=== PATIENT | male | born 1930 | race Caucasian/White ===

== ENCOUNTER 2016-05-25 04:53 | Emergency (ER) | payer MEDICARE ==
[~2016-05-25] VITALS: Ht 182.9 cm; Wt 111.4 kg
[~2016-05-25 04:53] MED LIST: ENAL20TA PO; HYDR25TA4 PO; METF500T PO; METO-274 PO; MULT1CAP33 PO; ONDA-53 PO; PROM12.510 PO
[2016-05-25 04:56] VITALS: BP 116/77; PULSE 118; RESP 28; O2SAT 94
[2016-05-25 05:27] LABS: BASOPHILS % (AUTO) 0.6 % (0-3); EOSINOPHILS % (AUTO) 0.9 % (0-5); MONOCYTES % (AUTO) 11.3 % (4-12); Mean Corpuscular Hemoglobin 29.8 pg (27.0-35.0); Mean Corpuscular Volume 95.3 fL (81-100); NEUTROPHILS % (AUTO) 70.1 % (40-74); Platelet Count 121 bil/L (150-400)
[2016-05-25 06:00] LABS: Magnesium 1.9 mg/dL (1.6-2.6)
[2016-05-25 06:02] LABS: TROPONIN T 0.268 ug/L (0.0-0.011)
--- NOTE | 2016-05-25 06:12 | ED.REPORT ---
HPI-Dyspnea / Wheezing Date of Service May 25, 2016 ED Provider: Dann Sigala DO A pleasant 86 year old diabetic male with a history of follicular lymphoma, HTN , and chronic kidney disease presents to the ER due to three weeks of shortness of breath, worsening markedly today. He states that his last chemotherapy treatment was 3 weeks ago, and reports SOB since, worsening today with dyspnea with minimal exertion. Associated symptom of intermittent chills. Patient denies fever, chest pain, chest pressure, cough, and urinary symptoms. No history of PE, DVT, and atrial fibrillation. Nursing Notes Stated Complaint: SHORT OF BREATH Chief Complaint: Respiratory Distress Nursing Notes Reviewed: Yes Allergies: Coded Allergies: No Known Allergies (Unverified , 05/25/16) Scheduled Enalapril Maleate (Enalapril Maleate) 20 Mg Tablet 20 MG PO BID Hydrochlorothiazide (Hydrochlorothiazide) 25 Mg Tablet 25 MG PO DAILY Metformin (Glucophage) 500 Mg Tablet 500 MG PO DAILY Metoprolol Succinate ER (Metoprolol Succinate ER) 100 Mg Tab.er.24h 100 MG PO BID Multivitamin (Multivitamins) 1 Each Capsule 1 EACH PO DAILY Scheduled PRN Ondansetron (Ondansetron) 4 Mg Tablet 4 MG PO Q6H PRN PRN For Nausea/Vomiting Promethazine (Promethazine) 12.5 Mg Tablet 12.5 MG PO Q4H PRN PRN For Nausea/ Vomiting General Time Seen by MD: 06:04 Chief Complaint Shortness of breath Hx Obtained From: Patient Arrived By: Walk-in Sudden in Onset?: No Onset Occurred: More than a week ago... (3 weeks) Symptom Duration: Since onset Location: : None Associated with: Denies: Chest pain, Cough, Fever, Nausea Exacerbated by: Activity Pertinent Negative: Relieved by nothing Context Related History: Denies: Pulmonary embolism Past Medical History Past Medical History Kidney stones Denies history of PE, DVT, and atrial fibrillation Reports: Cancer (Follicular lymphoma), Diabetes mellitus, GERD, Hypertension Reports: Kidney disease, Urinary tract infection Past Surgical History Reports: Prostatectomy Smoking History Former Smoker Ambulatory Status Independent Review of Systems Constitutional: Reports: Chills, Denies: Fever Respiratory: Reports: Dyspnea on exertion, Shortness of breath, Denies: Non-productive cough Cardiovascular: Denies: Chest pain Musculoskeletal: Denies: Back pain, Extremity pain, Neck pain Complete sys rev & neg: except as marked. Male: Denies Dysuria, Denies Flank pain, Denies Hematuria, Denies Urinary frequency, Denies Urinary urgency Physical Exam Initial Vital Signs Vital Signs (First) Date Time Temp Pulse Resp B/P Pulse Ox O2 Delivery O2 Flow Rate FiO2 05/25/16 04:56 36.2 118 28 116/77 94 Room Air 05/25/16 06:17 2 Initial VS: Reviewed Head / Eyes: Atraumatic, Normocephalic Abdomen / GI: Soft, Non-tender, No guarding, No rebound, No distention Extremities: Vascular intact, Neuro intact, No swelling, No tenderness Neurologic: Alert, Oriented, Nonfocal Psychiatric: Mood/affect normal, Behavior normal, Normal thought content General/Constitutional: Awake, Alert, Well developed, Well nourished Neck: Full range of motion, No midline vertebral tend Soft Tissue Neck: Positive: Cervical adenopathy L... (Anterior), Cervical adenopathy R... (Anterior) Respiratory / Chest: No rales, No rhonchi, No wheezing Diminished Breath Sounds: Positive: Decreased bilateral (mild) Cardiovascular: No gallop, No murmurs, No rubs Heart Rate / Rhythm: Positive: Irreg irregular rhythm Trace edema of the lower extremities, bilaterally. Skin: Warm, Dry Rash / Lesion Notes: Linear patchy rash along left chest wall consistent with shingles Rash / Lesion Location: Positive: Chest Interpretation & Diagnostics Lab Results Interpretation Result Diagram: 05/25/16 0512 05/25/16 0512 Test 05/25/16 05:12 White Blood Count 8.6th/mm3 (3.8-10.1) Red Blood Count 3.86mil/mm3 (4.40-5.80) Hemoglobin 11.5g/dL (13.8-17.2) Hematocrit 36.8% (41.0-50.0) Mean Corpuscular Volume 95.3fL (81-100) Mean Corpuscular Hemoglobin 29.8pg (27.0-35.0) Mean Corpuscular Hemoglobin Concent 31.3% (32.0-37.0) Red Cell Distribution Width 15.8% (12.3-15.4) Platelet Count 121bil/L (150-400) Neutrophils (%) (Auto) 70.1% (40-74) Lymphocytes (%) (Auto) 15.8% (14-46) Monocytes (%) (Auto) 11.3% (4-12) Eosinophils (%) (Auto) 0.9% (0-5) Basophils (%) (Auto) 0.6% (0-3) Activated Partial Thromboplast Time 25.2sec (22.8-33.0) Sodium Level 145mEq/L (134-144) Potassium Level 4.8mEq/L (3.5-5.2) Chloride Level 107mEq/L (97-108) Carbon Dioxide Level 19mmol/L (18-29) Blood Urea Nitrogen 47mg/dL (8-27) Creatinine 2.52mg/dL (0.76-1.27) Estimat Glomerular Filtration Rate 26mL/min (>59) Glucose Level 174mg/dL (60-99) Calcium Level 8.6mg/dL (8.5-10.1) Magnesium Level 1.9mg/dL (1.6-2.6) Total Bilirubin 0.5mg/dL (0.0-1.2) Aspartate Amino Transf (AST/SGOT) 18U/L (0-50) Alanine Aminotransferase (ALT/SGPT) 14U/L (0-44) Alkaline Phosphatase 72U/L (25-160) Troponin T 0.268ug/L (0.0-0.011) Pro-B-Type Natriuretic Peptide 7534pg/mL (0-486) Total Protein 6.1g/dL (6.4-8.4) Albumin 3.4g/dL (3.4-5.0) Hold Guzmán Top Tube Received (Received) ECG Interpretation ECG Interpretation: Atrial fibrillation, rate 90 ST depression and lateral T wave inversion v3-v6 Time: 06:33 Interpreted by: ED physician ECG Interpretation: Afib ST depression and T wave inversion in v3-v6, avL, and lead 2 Time: 07:26 Interpreted by: ED physician X-Ray Chest Interpretation Chest Xray Interpretation: Mild cephalization View: Portable, 1 view Interpretation / Wet Read by: Wet read ED physician Re-Eval/Medical Decision Med Decision/Clinical Course Shortness of breath with any exertion associated with active cancer, differential diagnosis at this juncture is non-ST elevation [place], demand ischemia from new onset A. fib, congestive heart failure, or pulmonary embolism. Unfortunately at this point he is not a candidate for CT angiogram of the chest due to renal function. He is placed on heparin. He was given aspirin. In terms of his atrial fibrillation, he is rate controlled without intervention. He is satting well on room air. He has no chest discomfort. He does not feel short of breath at rest. A ventilation/perfusion scan was ordered however was not done. He unfortunately will be transferred due to bed capacity. The hospitalist at [facility] has very graciously accepted this patient. Source of Hx: Old records Re-Evaluation/Progress #1: Time of Eval: 06:20 Re-Evaluation/Progress Note: Discussed lab and radiology results and need to admit. Patient is amenable to the plan. Updated him on the plan of care. All other questions addressed. Re-Evaluation/Progress #2: Time of Eval: 07:21 Re-Evaluation/Progress Note: Discussed plan to transfer to [facility]. Patient is amenable to the plan. All other questions addressed. Consultation : Referral / Consult Name: Edwin Harper MD Consulted With: Hospitalist Call Returned at: 07:01 Full Stack Software Engineer: Agrees with eval, Agrees with plan, Accepts admit Counseled Regarding: Diagnosis, Lab results, Need for transfer Discharge & Departure Impression: Primary Impression: NSTEMI (non-ST elevated myocardial infarction) Additional Impression: Chronic kidney disease Disposition: Transfer, Acute Care Facility Receiving Hospital: [facility] Transfer Accepted at: 07:07 Spoke with: Hospitalist (Dr. Harper) Patient Status: Stable Patient Informed: Yes Discharge Condition All VS Reviewed: Yes Condition: Stable Referrals: Edwin Allen MD (PCP) Crit Care Except Billable Proc Time Spent: 30-74 minutes Services Performed: Patient management by me, Time spent at bedside, Reviewing test results Critical Care Notes: See JH Hidalgo Attestation Portions of this note were transcribed by Umang Harding. I, Dr. Sigala, personally performed the history, physical exam and medical decision-making; I reviewed and confirmed the accuracy of the information in the transcribed note. Signed by: Gwen Sharma, 05/25/2016 and 07:24. copies to: Edwin Allen MD, Timothy S DO May 25, 2016 06:12 UMANG HARDING May 25, 2016 06:27
[2016-05-25 06:17] VITALS: BP 99/53; PULSE 76; RESP 18; O2SAT 94
[2016-05-25] MEDS ORDERED: Heparin 25K Unit/500mL 0.45 NS 25,000 UNIT in IV Premix 1 EACH IV ONE (06:30)
[2016-05-25] MEDS ORDERED: Heparin 5,000 Unit/mL Inj IVPUSH ONE (06:30)
[2016-05-25 06:51] VITALS: BP 112/76; PULSE 75; RESP 16; O2SAT 100
[2016-05-25 07:27] VITALS: BP 132/72; PULSE 86; RESP 24; O2SAT 99
--- NOTE | 2016-05-25 08:36 | DRSVH ---
PROCEDURE: X-RAY CHEST, TWO VIEWS ([id number]) INDICATIONS: SHORT OF BREATH UPON EXCERTION TECHNIQUE: 2 views of the chest were acquired. COMPARISON: [facility], , CHEST 2VW, 07/23/2011, 14:07. FINDINGS: Surgical changes and devices: None. Lungs and pleura: There is interstitial prominence most confluent in the lung bases bilaterally. No f ocal airspace opacities. No pleural effusion or pneumothorax. The lung volumes are large and the diap hragms are flattened suggesting emphysema. Mediastinum: Mediastinal contours are normal. Heart size is mildly enlarged. Bones and chest wall: No suspicious bony abnormalities. Degenerative changes are present throughout the thoracic spine which is osteopenic and kyphotic. Soft tissues appear unremarkable. IMPRESSION: 1. Interstitial prominence and mild cardiomegaly suggesting fluid overload. Dictated by: Brittanie Valdez M.D. on 05/25/2016 at 8:35 Approved by: Brittanie Valdez M.D. on 05/25/2016 at 8:35
== END 2016-05-25 07:42 | disposition short-term general hospital (02) ==
LOC: SED 04:53
DX: I21.4 Non-ST elevation (NSTEMI) myocardial infarction (principal); N18.9 Chronic kidney disease, unspecified; I48.91 Unspecified atrial fibrillation; E11.22 Type 2 diabetes mellitus with diabetic chronic kidney disease; I12.9 Hypertensive chronic kidney disease with stage 1 through stage 4 chronic kidney disease, or unspecified chronic kidney disease; K21.9 Gastro-esophageal reflux disease without esophagitis; Z85.72 Personal history of non-Hodgkin lymphomas; Z87.440 Personal history of urinary (tract) infections; Z87.442 Personal history of urinary calculi; Z87.891 Personal history of nicotine dependence; Z79.84 Long term (current) use of oral hypoglycemic drugs
CPT/HCPCS: 36415; 71020; 80053; 83735; 83880; 84484; 85025; 85730; 93005; 96374; 99291; J1644

== ENCOUNTER 2016-06-29 07:18 | Inpatient (IN) | payer MEDICARE ==
[2016-06-29] VITALS (11 sets, daily range): BP systolic 79–134; BP diastolic 43–68; PULSE 68–132; RESP 15–24; O2SAT 92–100
[~2016-06-29] VITALS: Ht 182.9 cm; Wt 106.3 kg
--- NOTE | 2016-06-29 07:24 | ED.REPORT ---
HPI-Stroke / CVA Jun 29, 2016 ED Provider: Gracia Mathis MD Patient is a 86 year old male with a hx of lymphoma, [place], HTN, and stroke who presents to the ED via EMS due to chest pain onset this 3 hours ago. He was woken up by chest pain this morning and experienced SOB just when putting his socks on. He was unable to put his clothes on or even get up due to weakness.. 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 He currently feels "much better then when the medics arrived" but still feels like he's fighting for breath. He has a hx of one medically managed heart attack and a few mini strokes and severe, daily SOB. Stent on right corroded artery. Healing shingles on abdomen since [place]. His oncologist is Dr. Ernandez. Currently lives by himself in a house. He denies previous issues with heart failure and is currently on Coumadin and warfarin. Nursing Notes Stated Complaint: CHEST PAIN Nursing Notes Reviewed: Yes Allergies: Coded Allergies: No Known Allergies (Unverified , 05/25/16) Scheduled Atorvastatin (Lipitor) 40 Mg Tablet 40 MG PO DAILY (Reported) Clopidogrel (Clopidogrel) 75 Mg Tablet 75 MG PO DAILY (Reported) Enalapril Maleate (Enalapril Maleate) 20 Mg Tablet 20 MG PO BID (Reported) Furosemide (Furosemide) 40 Mg Tablet 40 MG PO DAILY (Reported) Glimepiride (Glimepiride) 2 Mg Tablet 2 MG PO DAILYWM (Reported) Lisinopril (Lisinopril) 20 Mg Tablet 20 MG PO DAILY (Reported) Metformin (Metformin) 500 Mg Tablet 500 MG PO BIDAC (Reported) Metoprolol Tartrate (Metoprolol Tartrate) 100 Mg Tablet 125 MG PO DAILY ( Reported) Multivitamin (Multivitamins) 1 Each Capsule 1 EACH PO DAILY (Reported) Potassium Chloride ER (Klor-Con M20) 20 Meq Tablet 20 MEQ PO DAILY (Reported) Warfarin Sodium (Warfarin Sodium) 2.5 Mg Tablet 2.5 MG PO DAILY (Reported) Scheduled PRN Docusate Sodium (Colace) 100 Mg Capsule 100 MG PO BID PRN PRN For Constipation ( Reported) Ondansetron (Ondansetron) 4 Mg Tablet 4 MG PO Q6H PRN PRN For Nausea/Vomiting ( Reported) Promethazine (Promethazine) 12.5 Mg Tablet 12.5 MG PO Q4H PRN PRN For Nausea/ Vomiting (Reported) General Time Seen by Provider: 07:58 Chief Complaint Other (chest pain) Left-sided Hx Obtained From: Patient, Son Arrived By: Ambulance Time last known well yesterday evening Sudden in Onset?: Yes Context of Onset: During sleep Symptom Duration: Since onset Progression Since Onset: Unchanged Location: : Chest Radiation: Does not radiate Severity: Current: Mild Recent Healthcare: Recent doctor visit Similar Sx Previous: No Risk Factors NIH Stroke Scale Level of Consciousness: Alert and responsive (0) Ask Month & Age: Both questions right (0) Open/Close Eyes/Hand Water Plant Operator: Performs both tasks (0) Horizontal EO Movements: Partial gaze palsy (1) Facial Palsy: Partial paral, lower (2) Right Arm Motor Drift (10s): No drift 10 sec (0) Left Arm Motor Drift (10s): Drift, not touch bed (1) Right Leg Motor Drift (5s): No drift 5 sec (0) Left Leg Motor Drift (5s): No drift 5 sec (0) Limb Ataxia FNF/Heel-Morales: Ataxia in 1 limb (1) Language Aphasia: No aphasia, normal (0) Dysarthria: Slurring intelligible (1) Extinction/Inattention: Inatt visual/tactile (1) Time NIHSS Performed: 07:20 Date NIHSS Performed: Jun 29, 2016 Past Medical History Past Medical History Kidney stones Denies history of PE, DVT, and atrial fibrillation Ischemic cardiomyopathy Ejection fraction in the 20-25% range Reports: Cancer, Diabetes mellitus, GERD, Hypertension, Stroke Reports: Kidney disease, Urinary tract infection Past Surgical History Reports: Prostatectomy Smoking History Former Smoker Ambulatory Status Independent Review of Systems Constitutional: Reports: Weakness - generalized Respiratory: Reports: Shortness of breath Cardiovascular: Reports: Chest pain Complete sys rev & neg: except as marked. Physical Exam Initial Vital Signs Vital Signs (First) Date Time Temp Pulse Resp B/P Pulse Ox O2 Delivery O2 Flow Rate FiO2 06/29/16 07:36 36.7 122 24 104/51 94 Room Air 06/29/16 08:25 2 Initial VS: Reviewed ENT: Mucous membranes moist, Conjunctiva normal, No scleral icterus Back: No CVA tenderness General/Constitutional: Awake, Cooperative bruises all over in various stages of healing Head / Eyes: Atraumatic, Normocephalic, PERRL, EOMI Neck: Atraumatic, Supple, No meningismus, Full range of motion Respiratory / Chest: Atraumatic, Breath sounds NL, Breath sounds = bilat, No respiratory distress, No rales, No rhonchi, No wheezing, No retractions Heart Rate / Rhythm: Positive: Tachycardia Neurologic: Oriented X3, Speech NL, No motor deficits Abdomen: Atraumatic left sided shingles T5 Lower Extremity / Pelvis / MS: No edema no swelling in calves or tenderness Interpretation & Diagnostics Lab Results Interpretation Result Diagram: 06/29/16 0748 06/29/16 0748 Test 06/29/16 07:48 White Blood Count 10.5th/mm3 (3.8-10.1) Red Blood Count 3.06mil/mm3 (4.40-5.80) Hemoglobin 9.3g/dL (13.8-17.2) Hematocrit 28.7% (41.0-50.0) Mean Corpuscular Volume 93.8fL (81-100) Mean Corpuscular Hemoglobin 30.4pg (27.0-35.0) Mean Corpuscular Hemoglobin Concent 32.4% (32.0-37.0) Red Cell Distribution Width 15.1% (12.3-15.4) Platelet Count 208bil/L (150-400) Neutrophils (%) (Auto) 68.4% (40-74) Lymphocytes (%) (Auto) 17.5% (14-46) Monocytes (%) (Auto) 10.9% (4-12) Eosinophils (%) (Auto) 0.6% (0-5) Basophils (%) (Auto) 0.4% (0-3) Prothrombin Time 14.2sec (8.1-12.5) Prothromb Time International Ratio 1.32ratio Sodium Level 144mEq/L (134-144) Potassium Level 4.4mEq/L (3.5-5.2) Chloride Level 105mEq/L (97-108) Carbon Dioxide Level 19mmol/L (18-29) Blood Urea Nitrogen 47mg/dL (8-27) Creatinine 2.28mg/dL (0.76-1.27) Estimat Glomerular Filtration Rate 29mL/min (>59) Glucose Level 144mg/dL (60-99) Calcium Level 8.9mg/dL (8.5-10.1) Magnesium Level 2.2mg/dL (1.6-2.6) Total Bilirubin 1.1mg/dL (0.0-1.2) Aspartate Amino Transf (AST/SGOT) 16U/L (0-50) Alanine Aminotransferase (ALT/SGPT) 9U/L (0-44) Alkaline Phosphatase 86U/L (25-160) Troponin T 0.028ug/L (0.0-0.011) Total Protein 6.0g/dL (6.4-8.4) Albumin 3.7g/dL (3.4-5.0) ECG Interpretation ECG Interpretation: different ischemic A-fib w/ RVR Time: 08:06 Interpreted by: ED physician Rhythm / Conduction: Atrial fib with RVR (128) X-Ray Chest Interpretation Chest Xray Interpretation: IMPRESSION: Mild cardiomegaly redemonstrated. Dictated by: Renny Clement RRA Interpreted: Juan Mae MD on 06/29/2016 at 10:11 Transcribed by: MITCHELL on 06/29/2016 at 10:11 View: Portable Interpretation / Wet Read by: Interpret - Radiologist Re-Eval/Medical Decision Med Decision/Clinical Course 6-year-old gentleman presents with atrial fibrillation with rapid ventricular response, significant hypotension, chest pain and hypoxia. Initial treatment in the emergency department; 2 peripheral IVs. EKG does not suggest an acute STEMI, 2 L of fluid are given for hypotension, he responds nicely to oxygen and [id number]. Dopamine is started for hypotension and assistance with cardiac contractility. Prior to records being available, patient very clearly stated he wanted to be DO NOT RESUSCITATE would not be interested in cardiac catheterization or any heroic measures. Possibility of pulmonary embolism was considered as he did not recall atrial fibrillation previously. Because of poor renal function IV contrast is not an option so urgent echo was obtained in the emergency department. At this point records became available and it became much more clear that his issues are chronic progressive and indicate a very similar presentation and admission recently.. At this point continued with pressure support blood pressures in the 90-100 systolic range. He remains alert and appropriate. Discussed goals of care and appropriateness of a palliative care consult with this admission. Admitted to PCU Re-Evaluation/Progress : Time of Eval: 10:00 Patient Status: Condition unchanged Re-Evaluation/Progress Note: Pt rechecked. Plan for urgent echocardiogram. Consultation : Referral / Consult Name: Michael Queen MD Consulted With: Hospitalist Call Returned at: 10:30 Client Reporting Associate: Agrees with eval, Agrees with plan Note: Case discussed. Counseled Regarding: Diagnosis, Lab results, Need for admission Patient Discharge & Departure Impression: Primary Impression: NSTEMI (non-ST elevated myocardial infarction) Additional Impressions: Ischemic cardiomyopathy Weakness Renal failure Acute congestive heart failure Disposition: ADMITTED TO HOSPITAL Discharge Condition All VS Reviewed: Yes Condition: Stable Referrals: Edwin Allen MD (PCP) Crit Care Except Billable Proc Time Spent: 30-74 minutes Services Performed: Patient management by me, Time spent at bedside, Reviewing test results, Reviewing imaging, Discussing patient care, Documentation in record, Time with fam/surrogate Scribe Attestation Portion of this note were transcribed by Elisabeth Thibodeaux. I, Dr. Mathis, personally performed the history, physical exam, and medical decision-making: I reviewed and confirmed the accuracy for the information in the transcribed note. Signed by: johana Atwood, 06/29/16 1200 copies to: Edwin Allen MD, Shawna L MD Jun 29, 2016 07:24 ELISABETH THIBODEAUX Jun 29, 2016 07:36
[2016-06-29 08:01] LABS: BASOPHILS % (AUTO) 0.4 % (0-3); EOSINOPHILS % (AUTO) 0.6 % (0-5); MONOCYTES % (AUTO) 10.9 % (4-12); Mean Corpuscular Hemoglobin 30.4 pg (27.0-35.0); Mean Corpuscular Volume 93.8 fL (81-100); NEUTROPHILS % (AUTO) 68.4 % (40-74); Platelet Count 208 bil/L (150-400)
[2016-06-29] MEDS ORDERED: 0.9% Sodium Chloride 1,000 ML IV ONE (08:05)
[2016-06-29 08:21] LABS: INR 1.32 ratio
[2016-06-29] MEDS: DOPamine 800 mg/250 mL D5W 800,000 MCG in IV Premix 1 EACH IV SCH (08:23)
[2016-06-29 08:26] LABS: TROPONIN T 0.028 ug/L (0.0-0.011)
[2016-06-29 08:37] LABS: Magnesium 2.2 mg/dL (1.6-2.6)
--- NOTE | 2016-06-29 10:12 | DRSVH ---
PROCEDURE: X-RAY CHEST ONE VIEW, PORTABLE ([id number]) INDICATIONS: CP TECHNIQUE: One view of the chest was acquired. COMPARISON: [facility], CR, XR CHEST 2VW, 05/25/2016, 5:20. FINDINGS: Surgical changes and devices: None. Lungs and pleura: No pleural effusions or pneumothorax. Lungs are clear. Mediastinum: Mediastinal contours appear normal. Heart size is enlarged. Bones and chest wall: No suspicious bony lesions. Overlying soft tissues appear unremarkable. IMPRESSION: Mild cardiomegaly redemonstrated. Dictated by: Renny Clement [facility] Interpreted: Juan Mae MD on 06/29/2016 at 10:11 Transcribed by: MITCHELL on 06/29/2016 at 10:11 Approved by: Juan Mae M.D. on 06/29/2016 at 16:21
--- NOTE | 2016-06-29 11:21 | DRSVH ---
[facility] [address] [place] [address] Echocardiogram Report Name: NNEKA MENDOSA LStudy Thomas e: 06/29/2016 Height: 72 in Hospital Exam Location: [facility] Weight: 225 lb Gender: Male BSA: 2.2 m2 : 1930 Age: 86 yrs BP: 136/47 mmHg Reason For Study: NSTEMI Ordering Physician: Performed By: Geeta WALDENIST [facility] Interpretation Summary The left ventricle is normal in size. The ejection fraction is estimated to be 30-35%. Compared to the prior exam, left ventricular function is slightly improved. Basal LV segments contractility have improved in this study from the previous one. The right ventricle is normal in size and function. There is mild mitral regurgitation. Compared to the prior echo study, there has been no change in the severity of mitral regurgitation. There is mild tricuspid regurgitation. Compared to the prior echo exam, there has been no change in TR severity. Right ventricular systolic pressure is estimated to be 40 mmHg plus the clinically estimated CVP which cannot be estimated on this exam. Procedure: A two-dimensional transthoracic echocardiogram with color flow and Doppler was performed. The study quality was technically adequate. A contrast injection of Definity was performed to improve assessment of LV function. Comparison is made with the echocardiogram of 05/25/2016. The patient was in atrial fibrillation with heart rates between 104-146 bpm during the exam. Left Ventricle: The left ventricle is normal in size. Proximal septal thickening is noted. There is no thrombus. The ejection fraction is estimated to be 30-35%. Compared to the prior exam, left ventricular function is slightly improved. There is moderate to severe global hypokinesis of the left ventricle. Basal LV segments contractility have improved in this study from the previous one. Diastolic function could not be accurately assessed due to atrial fibrillation. Right Ventricle: The right ventricle is normal in size and function. Atria: The left atrium is moderately dilated. The left atrium has mildly decreased in size since the prior echo exam. The right atrium is mildly dilated. The interatrial septum is not well visualize; however, the prior echo demonstrated a small PFO. Mitral Valve: The mitral valve leaflets appear mildly thickened, but open well. The mitral valve leaflets are slightly calcified. There is mild mitral regurgitation. Compared to the prior echo study, there has been no change in the severity of mitral regurgitation. Aortic Valve: The aortic valve is trileaflet. The aortic valve opens well. There is moderate aortic valve sclerosis. There is no aortic valve stenosis. No aortic regurgitation is present. Tricuspid Valve: The tricuspid valve is not well visualized, but is grossly normal. There is mild tricuspid regurgitation. Right ventricular systolic pressure is estimated to be 40 mmHg plus the clinically estimated CVP which cannot be estimated on this exam. Compared to the prior echo exam, there has been no change in TR severity. Pulmonic Valve: The pulmonic valve is not well seen, but is grossly normal. There is mild pulmonic regurgitation. Great Vessels: The aortic root is normal size. The inferior vena cava was not visualized. Pericardium/ Pleura There is no pericardial effusion. MMode/2D Measurements & Calculations LVIDd: 4.6 cm LA dimension: 4.1 cm RA long axis: 5.1 cm LVOT diam LVIDs: 3.8 cm FS: 18.4 % LA A2 area: 26.8 cm RA area: 20.9 cm AoV Opening IVSd: 1.2 cm LA A4 area: 24.8 cm RA vol: 72.5 ml : 0.96 cm LVPWd: 0.83 cm LA length (vol): 5.9 cm RA : 32.3 ml/m2 LA vol: 95.0 ml LA vol index: 42.4 ml/m2 EDV(MOD-sp2) LV warren. diameter/BSA LV sys. diameter/BSA RVD1 (basal) : 114.6 ml (cm/m^2): 2.1 (cm/m^2): 1.7 Doppler Measurements & Calculations Ao V2 max MV E max jluis Med Peak E' Jluis TR max jluis : 157.5 cm/sec : 111.3 cm/sec : 310.3 cm/sec Ao max P.9 mmHg E/E' med: 11.6 TR max PG Ao mean P.4 mmHg Lat Peak E' Jluis : 39.6 mmHg LVOT Max Jluis PA V2 max : 127.3 cm/sec E/E' lat: 7.6 : 131.7 cm/sec E/e' average: 9.6 PA mean PG YESY(I,D): 2.1 cm sev ratio: 0.78 PA Accel Time : 0.06 sec MV dec time: 0.12 sec Ao V2 mean LV V1 max PG PA V2 mean : 122.0 cm/sec : 89.4 cm/sec Ao V2 VTI: 23.1 cmLV V1 VTI: 17.9 cm YESY(V,D): 2.2 cm2 YESY indexed to BSA (cm^2/m^2): 0.93 Reading Physician:AM
[2016-06-29] MEDS ORDERED: FURO40TA4 PO (11:53)
[2016-06-29] MEDS ORDERED: LISI-567 PO (11:54)
[2016-06-29] MEDS ORDERED: CLOP75TA28 PO (11:54)
[2016-06-29] MEDS ORDERED: docqlace (11:56)
[2016-06-29] MEDS ORDERED: DOCU-41 PO (11:56)
[2016-06-29] MEDS ORDERED: METO100T3 PO (11:57)
[2016-06-29] MEDS ORDERED: LIP40 PO (11:58)
[2016-06-29] MEDS ORDERED: WARF2.5T82 PO (11:59)
[2016-06-29] MEDS ORDERED: POTA20TA7 PO (12:00)
[2016-06-29] MEDS ORDERED: GLIM2TAB2 PO (12:12)
[2016-06-29] MEDS ORDERED: METF500T4 PO (12:14)
[2016-06-29] MEDS ORDERED: Ondansetron 2 mg/mL 2 mL Inj IVPUSH PRN ×2 (12:35→15:05)
[2016-06-29] MEDS ORDERED: Alum-Mag Hydrox-Simeth 30 mL Suspension PO PRN ×2 (12:35→15:05)
--- NOTE | 2016-06-29 14:00 | NUR ---
Admit: Patient arrived to [facility] room 2027 at about 1320 via stretcher patient was able to transfer self from stretcher to bed with assistance. A&O X3. Reports 1/10 chest discomfort, but states it is much improved from what it was this morning. Tele: Afib 120's. c/o SOB. SpO2: high 90's to 100% on 4L NC. Dopamine gtt infusing at 2.5mcg/kg/min to R AC peripheral IV. VSS.
[2016-06-29] MEDS ORDERED: Polyethylene Glycol (PEG) 17 Gm Powder PO PRN (15:05)
[2016-06-29] MEDS: Heparin 5,000 Unit/mL Inj SUBQ SCH ×2 (17:48→22:02)
--- NOTE | 2016-06-29 18:36 | PCM.HPMED ---
Subjective Date of Service Jun 29, 2016 Primary Provider: Admitting Physician: Michael Queen MD Primary Care Physician: Roberto Carlos Murdock MD Attending Physician: Michael Queen MD Chief Complaint: Chest pain, shortness of breath, weakness History of Present Illness: Patient is a 86 year old male with a history of lymphoma, IL, hypertension, systolic congestive heart failure, stroke, and multiple recurrent TIAs who presents to the ED via EMS due to chest pain which began 3 hours prior to admission. He was woken up by chest pain this morning and experienced shortness of breath and weakness, to the point that he was only able to put his socks on and was unable to dress further. He describes his chest pain as left sided substernal dull chest pain that waxes and wanes, without radiation. He denies new vision changes, facial droop, focal weakness or numbness, palpitations, N/V/ D, abdominal pain, edema, or leg pain. He was unable to put his clothes on or even get up due to weakness. He received aspirin from medics prior to arrival to the ED. He reports the night prior he had an "electric jolt" through his body while walking and had a fall. In the ED, HR was 122, RR 24, BP dropped to 91/55. WBC was 10.5, Hb 9.3. BUN was 47, Cr 2.28. Troponin was 0.028. EKG showed afib at HR 128, with ST depression most prominent in leads V3-V5. CXR showed cardiomegaly with no acute changes. He was placed on dopamine gtt. On admission, he reports his chest pain and shortness of breath are improved, with no new changes. Pt was recently admitted to [facility] from 05/31 - 06/07/16 for TIA secondary to critical L carotid stenosis, s/p stent on 06/04/16, new onset severe systolic CHF with evidence of ischemic cardiomyopathy, atrial fibrillation with RVR, and acute on chronic renal failure. Baseline creatinine is 1.9 - 2. He currently lives by himself in a house in [place]. Discussed the situation with the patient; he feels that he may not live for more than a year more and does not wish to prolong his life much further. He is interested in a hospice visit at this time. PCP is Dr. Edwin Allen. His oncologist is Dr. Ernandez. Review of Systems: Comprehensive review of systems conducted and was negative except for the pertinent positives listed above. Allergies Coded Allergies: No Known Allergies (Unverified , 05/25/16) Home Medications Atorvastatin 40 mg daily Plavix 75 mg daily Colace 100 mg BID PRN Enalapril 20 mg BID Furosemide 40 mg daily Glimepiride 2 mg daily Lisinopril 20 mg daily Metformin 500 mg BID Metoprolol tartrate 125 mg daily Multivitamin Zofran 4 mg q6h PRN KCl 20 meq daily Promethazine 12.5 mg q4h PRN Warfarin 2.5 mg daily PMH History of multiple TIAs Non-Hodgkin Lymphoma Type 2 Diabetes Mellitus Hypertension Chronic Kidney Disease, Stage 4 Atrial fibrillation Systolic congestive heart failure Carotid atherosclerosis s/p stent Surgical History Prostatectomy Knee Surgery Family History Father - Rectal cancer Brother - Lung cancer Sister - Arm cancer Brother - of Hodgkin lymphoma at young age Mother - at 98 of pneumonia Social History Hx Alcohol Use: No Hx Substance Use: No Smoking Status: Former Smoker Exam Vital Signs Vital Sign - Last Date Time Temp Pulse Resp B/P Pulse Ox O2 Delivery O2 Flow Rate FiO2 06/29/16 14:02 Supplement Oxygen 06/29/16 13:27 36.5 68 20 134/55 100 4.00 Exam General: Alert, Oriented X3, Cooperative, No Acute Distress Head: Normocephalic, atraumatic. External ears normal. Eyes: PERRLA, EOMI. Anicteric sclerae. Mouth: Mouth Normal, Mucous Membranes Moist/Morral Neck: Neck supple with full range of motion. Chest & Lungs: Clear to auscultation bilaterally with no crackles, wheezes, or rhonchi. Cardiovascular: Irregularly irregular, tachycardic, Normal S1, Normal S2, No Murmurs/Rubs/Gallops Abdomen: Non-tender, Non-distended, No masses, Normoactive bowel tones, Soft Musculoskeletal: Normal Range of Motion Skin: Healing rash on left back from shingles episode. Multiple old bruises on arms and legs from falls. Extremities: No cyanosis/clubbing/edema bilaterally Neurological: Grossly Neurologically Intact, Slight difficulty with word finding (chronic). Lab and Diagnostics Result Diagram: 06/29/16 0748 06/29/16 0748 Assessment & Plan Patient is a 86 year old male with a history of lymphoma, IL, hypertension, systolic congestive heart failure, stroke, and multiple recurrent TIAs who presents with dull chest pain, shortness of breath, and generalized weakness. 1. Possible NSTEMI, acute. Present on admission. - Pt presents with chest pain and shortness of breath that awoke him this morning. EKG shows ST depression in lateral leads, and troponin elevated at 0.028. However, his troponin appears to be chronically elevated in the context of chronic kidney disease. He wishes to speak with hospice at this time and does not wish for aggressive intervention. - Monitor troponin x3 - Continue home Plavix - Monitor on telemetry - PRN Nitro and morphine 2. Atrial fibrillation with rapid ventricular rate, acute. Present on admission. - Pt presents with shortness of breath, HR 120s and in afib. Pt is on metoprolol tartrate 125 mg daily. He does not want aggressive measures and wishes for mostly symptomatic control. - Will start on metoprolol tartrate 50 mg TID and titrate up for rate and symptom control. - Continue warfarin 3. Systolic congestive heart failure, chronic. Present on admission. - Patient appears to be back to baseline in terms of respiratory function and breathing well. CXR does not show new infiltrates. - Continue home lisinopril, furosemide, and KCl - Metoprolol tartrate 50 mg TID 4. Chronic Kidney Disease, Stage 4 - Pt baseline is 1.9 to 2. Cr 2.28 on admission. - Continue to monitor Cr. - Will hold off on fluids for now to avoid worsening CHF. 5. Type 2 Diabetes Mellitus - Glucose 144. Pt on Metformin 500 mg BID - Hold home metformin and glimepiride - Humalog low dose correctional scale. 6. Other Medical Conditions - Non-Hodgkin Lymphoma - Hypertension - History of multiple TIAs - Carotid atherosclerosis s/p stent VTE Mechanical Devices: Intermittant Pneumatic CD Resuscitation Status: DNR/DNI:Do Not Resuscitate/Intubate Attending Statement The patient was seen and examined together with Dr. Adamson on 06/29/2016 and I agree with the history, exam and plan as outlined in the note above. . Eben Adamson Jun 29, 2016 15:39 Michael Queen MD Jul 01, 2016 08:28
[2016-06-29 19:50] LABS: INR 1.3 ratio
--- NOTE | 2016-06-29 20:21 | NUR ---
BP/Transfer to CCU Pt BP 79/47 at initial VS check. Repeated on Right arm, 88/44. Pt denies symptoms. Placed bed in flat position. Call to MD to clarify dopamine gtt and pt status. Orders received to transfer to CCU. Report given to Kike Mulligan RN. Pt transferred in bed to room 2019 at 2030.
--- NOTE | 2016-06-29 20:53 | PCM.CONPHA ---
Subjective Date of Service: Jun 29, 2016 Chest pain, shortness of breath, weakness Reason for Pharmacy Consult: Anticoagulation Management Objective Vital Signs Date Time Temp Pulse Resp B/P Pulse Ox O2 Delivery O2 Flow Rate FiO2 06/29/16 19:41 89/68 06/29/16 19:41 79/47 06/29/16 19:38 79 19 100 Nasal Cannula 2.50 06/29/16 17:40 36.7 110 22 105/64 100 Nasal Cannula 4.00 06/29/16 16:04 36.7 107 19 118/49 100 Nasal Cannula 4.00 06/29/16 14:02 Supplement Oxygen 06/29/16 13:27 36.5 68 20 134/55 100 Nasal Cannula 4.00 06/29/16 13:23 36.5 68 20 134/55 100 Nasal Cannula 4.00 06/29/16 13:23 125 06/29/16 10:55 113 15 107/50 100 Room Air 06/29/16 09:49 132 22 116/62 92 Nasal Cannula 06/29/16 08:25 105 20 91/55 Nasal Cannula 2 06/29/16 07:36 36.7 122 24 104/51 94 Room Air Weight (Kilograms): 105.400 Height (Feet): 6 Height (Inches): 0 Test 06/29/16 07:48 06/29/16 18:25 06/29/16 19:50 White Blood Count 10.5th/mm3 (3.8-10.1) Red Blood Count 3.06mil/mm3 (4.40-5.80) Hemoglobin 9.3g/dL (13.8-17.2) Hematocrit 28.7% (41.0-50.0) Mean Corpuscular Volume 93.8fL (81-100) Mean Corpuscular Hemoglobin 30.4pg (27.0-35.0) Mean Corpuscular Hemoglobin Concent 32.4% (32.0-37.0) Red Cell Distribution Width 15.1% (12.3-15.4) Platelet Count 208bil/L (150-400) Neutrophils (%) (Auto) 68.4% (40-74) Lymphocytes (%) (Auto) 17.5% (14-46) Monocytes (%) (Auto) 10.9% (4-12) Eosinophils (%) (Auto) 0.6% (0-5) Basophils (%) (Auto) 0.4% (0-3) Sodium Level 144mEq/L (134-144) Potassium Level 4.4mEq/L (3.5-5.2) Chloride Level 105mEq/L (97-108) Carbon Dioxide Level 19mmol/L (18-29) Blood Urea Nitrogen 47mg/dL (8-27) Creatinine 2.28mg/dL (0.76-1.27) Estimat Glomerular Filtration Rate 29mL/min (>59) Glucose Level 144mg/dL (60-99) Calcium Level 8.9mg/dL (8.5-10.1) Magnesium Level 2.2mg/dL (1.6-2.6) Total Bilirubin 1.1mg/dL (0.0-1.2) Aspartate Amino Transf (AST/SGOT) 16U/L (0-50) Alanine Aminotransferase (ALT/SGPT) 9U/L (0-44) Alkaline Phosphatase 86U/L (25-160) Total Protein 6.0g/dL (6.4-8.4) Albumin 3.7g/dL (3.4-5.0) Prothrombin Time 14.0sec (8.1-12.5) Prothromb Time International Ratio 1.30ratio Troponin T 0.228ug/L (0.0-0.011) Assessment/Plan Assessment/Plan Warfarin per Rx Indication: A-Fib INR today: 1.32, Goal is 2 - 3 Resume home dose of 2.5mg tonight as pt did not take his dose prior to being admitted Daily INR ordered Bud Ortiz PharmD Jun 29, 2016 20:53
--- NOTE | 2016-06-29 22:03 | NUR ---
Hold Medications Dr. Abdirahman Leong... ordered to not administer night time dose of Warfarin and Heparin SQ until we are able to trend H&H to ensure it is not trending down. Both Medications held at this time by RN.
[2016-06-29 22:43] LABS: APPEARANCE,URINE CLEAR (CLEAR,HAZY); COLOR,URINE YELLOW (YELLOW); OCCULT BLOOD,URINE TRACE (NEGATIVE); PH,URINE 5.5 (5.0-8.0); UROBILINOGEN,URINE NORMAL (NORMAL)
[2016-06-30] VITALS (7 sets, daily range): BP systolic 88–122; BP diastolic 41–54; PULSE 78–102; RESP 15–20; O2SAT 95–100
[2016-06-30] MEDS ORDERED: MeTOProlol 1 mg/mL 5 mL Inj IVPUSH ONE (02:30)
[2016-06-30] MEDS ORDERED: 0.9% Sodium Chloride 1,000 ML ONE (02:44)
[2016-06-30] MEDS ORDERED: Norepinephrine 8,000 mCg/250 mL D5W Premix IV SCH (03:20)
[2016-06-30 04:50] LABS: INR 1.23 ratio
--- NOTE | 2016-06-30 04:56 | NUR ---
Pressers/Afib RVR Dopamine gtt titrated up to 0.5mcg/kg/minute to maintain MAP. Pt's afib accelerated into RVR. pageliliana, dopamine stopped, 2.5mg Metoprolol IVP administered with good effect to rate but dropped BP. 250ml NS bolus administered along with starting Levophed gtt and now is at 0.03mcg/kg/minute to maintain MAP at goal of 60. Once patient's rate was controlled below 100, patient's nausea and increasing shortness of breath subsided. Late Entry: Patient transferred from PCC to CCU status for dopamine gtt used for BP vs renal perfusion dosing. RN-RN report received from Evelia Mulligan RN
[2016-06-30] MEDS: DOPamine 800 mg/250 mL D5W 800,000 MCG in IV Premix 1 EACH IV SCH (08:02)
[2016-06-30] MEDS ORDERED: Potassium Chloride 20 mEq SR Tablet PO SCH (08:30)
[2016-06-30] MEDS ORDERED: Heparin 5,000 Unit/mL Inj IVPUSH PRN (11:35)
[2016-06-30] MEDS ORDERED: Heparin 25K Unit/500mL 0.45 NS 25,000 UNIT in IV Premix 1 EACH IV SCH (11:35)
--- NOTE | 2016-06-30 12:01 | DRSVH ---
PROCEDURE: X-RAY CHEST ONE VIEW, PORTABLE ([id number]) INDICATIONS: possible sepsis TECHNIQUE: One view of the chest was acquired. COMPARISON: [facility], CR, XR CHEST 1VW (PORTABLE), 06/29/2016, 7:42. [facility], CR, XR CHEST 2VW, 05/25/2016, 5:20. FINDINGS: Surgical changes and devices: None. Lungs and pleura: No pleural effusions or pneumothorax. Lungs are abnormal, with a chronic intersti tial prominence and crowding of the bronchovascular markings superimposed due to the reduced inspirat ory volume. Mediastinum: Mediastinal contours appear normal. Heart size is normal. Bones and chest wall: No suspicious bony lesions. Overlying soft tissues appear unremarkable. IMPRESSION: No definite pneumonia seen. Chronic interstitial prominence accentuated by reduced inspi ratory volume. Dictated by: Juan Mae M.D. on 06/30/2016 at 11:59 Approved by: Juan Mae M.D. on 06/30/2016 at 12:00
--- NOTE | 2016-06-30 12:04 | DRSVH ---
PROCEDURE: US RENAL SONOGRAM INDICATIONS: CKD TECHNIQUE: Real-time scanning was performed of the kidneys and bladder, with image documentation. COMPARISON: None. FINDINGS: Kidneys: Kidneys are mildly reduced in size. Right kidney measures 8.7 cm long; left kidney measure s 9.0 cm long. Right renal cortical thickness is 0.9 cm; left renal cortical thickness is 1.0 cm. R enal cortical echotexture is normal. No hydronephrosis or nephrolithiasis. No suspicious solid mass lesions. There is a exophytic cyst at the upper-midpole junction measuring up to 1.7 cm, and a set of 2 simple left-sided cysts at the mid kidney measuring up to 7 mm and 8 mm respectively Bladder: The bladder is drained by a Castaneda catheter in place, no bladder mass or calculus is suspect ed. Limited quality visualization due to emptying of the bladder. Miscellaneous: No free pelvic fluid. IMPRESSION: Relatively small kidneys bilaterally, no urinary tract obstruction or calculus is found. Relatively small bilateral renal cysts are noted, 2 on the left and one on the right. No specific f ollowup is necessary. Dictated by: Juan Mae M.D. on 06/30/2016 at 12:00 Approved by: Juan Mae M.D. on 06/30/2016 at 12:03
--- NOTE | 2016-06-30 12:23 | CONS ---
[address] [address] CONSULTATION REPORT PATIENT: NNEKA MENDOSA : 1930 MR#: [id number] ADMIT: 06/29/2016 JOB ID: [id number] DATE OF SERVICE: 06/30/2016 PULMONARY CRITICAL CARE CONSULTATION NOTE: The patient is an 86-year-old man with follicular lymphoma, recent TIA/stroke, status post left carotid stent for critical stenosis, congestive heart failure, seen in consultation at the request of Dr. Queen for hypotension, shock, and shortness of breath. HISTORY OF PRESENT ILLNESS: The patient has a complex medical history including follicular lymphoma for which he is seen by Dr. Mcrae, systolic cardiomyopathy with EF around 30% to 35%, chronic kidney disease, stroke and recent left carotid stent placed at [facility], May 2016, who came into the emergency department yesterday with shortness of breath and chest pain. On asking, he says his chest pain is more like twinges and denies any substernal chest pressure or sense of an elephant sitting on his chest. He has had shortness of breath for about six weeks now and this has not changed a whole lot. He also says he is very weak and is having falls at home. He last had chemotherapy with bendamustine and Rituxan in April 2016, and did not tolerate it well according to Dr. Mcrae's notes. He had problems with dehydration and generalized weakness and no further chemotherapy was given after that. He has been having some chills but denies fevers, cough, abdominal pain. He had one episode of vomiting during this week. Denies diarrhea. In fact he has not had a bowel movement since , i.e., three days ago. On arrival in the emergency department, he did have a slight troponin leak and he was admitted. PAST MEDICAL HISTORY: 1. Follicular lymphoma of the neck, status post chemotherapy three years ago, with recurrence involving the lip, treated most recently with bendamustine and rituximab April 2016. Followed by Dr. Mcrae. Lymphoma is considered stage IIA. 2. Ischemic cardiomyopathy with EF around 35%. 3. Atrial fibrillation--supposedly started on Coumadin 1 month ago but on arrival here, his INR was 1.3. 4. Hospitalization at [facility] May 2016 for stroke, left carotid stenosis, status post stenting. 5. Chronic kidney disease with baseline creatinine around 1.52. SOCIAL HISTORY: Ex-smoker who quit smoking nearly 40 years ago and has a 30 pack-year smoking history. FAMILY HISTORY: Father had rectal cancer and brother had lung cancer according to review of medical record. REVIEW OF SYSTEMS: Positive as mentioned above for chest pain, shortness of breath, generalized weakness, falls and chills. He has also lost almost 30 pounds of weight in the last couple of months. Remaining 10 point review of systems is completely negative. PHYSICAL EXAMINATION: Vital signs reviewed. He is afebrile. Pulse 79, BP 88/50, sats 99% on 2 L nasal cannula. General: Pleasant elderly gentleman sitting up in bed, breathing comfortably at rest. Alert and oriented. Neck: No cervical lymphadenopathy. Oral mucosa is moist. No ulcers or thrush. Chest: Clear to auscultation bilaterally. No wheezes or crackles. Heart irregular. No murmurs. Abdomen: Soft, nontender. No organomegaly. Extremities: No cyanosis, clubbing, or edema. Skin: No rashes. LABORATORIES: Reviewed. WBC is 10, hemoglobin 8.5. Chemistry reviewed and shows creatinine of 2.28 which is slightly elevated from his baseline. Troponin started out at 0.02 and is now up to 0.34. Procalcitonin is 0.12. Chest x-ray reviewed and shows no significant change compared to May 2016. No focal pulmonary infiltrates. Echocardiogram done today shows ejection fraction 30% to 35%. No focal wall motion abnormalities and RVSP estimated at 40 mm, mild mitral regurgitation. ASSESSMENT AND RECOMMENDATIONS: 1. Shock--? Septic versus cardiogenic. 2. Chest pain and shortness of breath. 3. Troponin elevation. 4. Acute on chronic kidney injury. 5. Follicular lymphoma stage IIA. 6. Ischemic cardiomyopathy, ejection fraction 30% to 35%. 7. Atrial fibrillation, subtherapeutic on Coumadin. 8. Stroke/transient ischemic attack, status post recent left carotid stent May 2016. This 86-year-old gentleman with complex medical history, including follicular lymphoma, last receiving chemotherapy with bendamustine, rituximab, April 2016, chronic kidney disease, cardiomyopathy, and recent left carotid stent for TIA/stroke is presenting with "twinges" of chest pain, shortness of breath for six weeks and a troponin leak. His INR is subtherapeutic at 1.3, so we certainly have PE on the differential. His most recent chest CT in May was a noncontrast study and does not show any abnormalities that would explain his symptoms. Given his kidney function, we really cannot pursue a cardiac cath or a CT pulmonary angiogram, safely. The patient himself is talking about hospice based on his recent experience with chemotherapy and multiple complications with that. He does not want anything aggressive done, according to primary team. We talked about starting a heparin drip at this point, and considering additional workup when his creatinine improves. I think this is a reasonable plan and would cover both non ST-elevation MD and PE. In the meantime, I do not think we have completely rule out infection so I would recommend getting cultures of blood, urine. Procalcitonin which we requested has just resulted at 0.12; therefore, negative. I recommend broad-spectrum antibiotics until we have negative cultures for at least 24 hours. The patient is DNR/DNI per conversation with the primary team. I will follow up on him on Saturday when I am back in the ICU. Critical care time 45 minutes.
--- NOTE | 2016-06-30 12:34 | NUR ---
NUTRITION ASSESSMENT: ASSESS:86 YO male with follicular lymphoma, recent TIA/stroke, status post left carotid stent for critical stenosis, congestive heart failure, admitted with hypotension, shock, and shortness of breath. PE is on the differential. Recent chest CT in May does not show any abnormalities that would explain his symptoms. The patient himself is talking about hospice based on his recent experience with chemotherapy and multiple complications with that. He does not want anything aggressive done, according to primary team. He has had a 9.37% weight loss x 7 weeks, indicative of severe malnutrition. Code status: DNR / DNI. 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 Ernandez; ischemic cardiomyopathy with EF around 35%; atrial fibrillation, supposedly started on Coumadin 1 month ago, but on arrival here, his INR was 1.3; recent hospitalization at [facility] May 2016 for stroke, left carotid stenosis, status post stenting; chronic kidney disease with baseline creatinine around 1.52. DIET:Heart healthy consistent carb. PO intake not yet recorded. LABS: Reviewed. Procalcitonin 0.12. MEDICATIONS: Reviewed. Coumadin, Lopressor, Lasix. NUTRITION FOCUSED PHYSICAL ASSESSMENT: GI symptoms / stool: No BM.Say: 18 Skin Integrity: No issues reported. ANTHROPOMETRICS: Current Wt: 105.4 kgBMI: 31.0 kg/m2. IBW: 80.9 kg (130% IBW) ESTIMATED NEEDS (CANCER CACHEXIA, CLASS I OBESITY): Calories: 2023 - 2427 kcal (25 - 30 kcal / kg IBW) Protein: 146 - 162 g protein (1.8 - 2.0 g / kg IBW) Fluid: Approx. 2635 mL (25 mL / kg BW) NUTRITION DIAGNOSIS: 1)Increased nutrient needs related to cancer cachexia, as evidenced by severely malnourished status. 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 INTERVENTION: 1) Will add Glucerna to trays. 2) Hospice visit scheduled for today. 3)Will follow up with nutrition education for cancer if appropriate following hospice visit. MONITOR/EVALUATE: Diet tolerance, PO intake, labs, GI/nutrition status. Follow up per high nutrition risk guidelines.
[2016-06-30] MEDS ORDERED: Nitroglycerin 2% 1 Gm Ointment TOPICAL SCH (13:20)
[2016-06-30] MEDS ORDERED: Glucose 40% Oral Gel 15 Gm Tube PO PRN (13:45)
--- NOTE | 2016-06-30 14:31 | NUR ---
Social Work: Initial Assessment D: Per EMR review, Pt isn 86 year old male admitted for NSTEMI/CHF/Weakness/Sever Cardiomyopathy. Pt is [employer] with no LTC insurance. PCP is Roberto Carlos Murdock MD. NOK is Aster Flanagan Son, . Advanced directives completed but not on file- DATA DEVELOPER requested these from pt for EMR. Readmit score is moderate, 3/8. DATA DEVELOPER met with pt at bedside. Sw role and contact information provided. See initial assessment. Pt lives at home in [place], alone. Pt uses a FWW at baseline. Pt's son assists pt with cooking, chores and laundry. Pt is currently open with [facility] for RN, PT. Pt is interested in hospice services after speaking with hospitalist. He is requesting an informational visit. DATA DEVELOPER spoke with Eugenie at [facility]. They can send someone to see the pt today at 2:00pm. Pt states he would like to get a wheelchair for home use. Pt would also benefit from a hospital bed and a bath bench. Pt's son was not at bedside. DATA DEVELOPER will follow up about caregiving and additional support at home after hospice visit. A: Pt who lives at home alone with assistance from his son. P: Anticipate pt to discharge home with either hospice services or resumed [facility]. DATA DEVELOPER to follow up with pt regarding additional support at home; DATA DEVELOPER to continue to follow. KEON Raphael Addendum: 06/30/16 at 1445 by CHRISTIANO MESA Amended: Links added.
--- NOTE | 2016-06-30 15:48 | PCM.PNMED ---
Subjective Date of Service Jun 30, 2016 Subjective Patient is a 86 year old male with a history of lymphoma, [place], hypertension, systolic congestive heart failure, stroke, and multiple recurrent TIAs who presents to the ED via EMS due to chest pain which began 3 hours prior to admission. He was woken up by chest pain this morning and experienced shortness of breath and weakness, to the point that he was only able to put his socks on and was unable to dress further. He describes his chest pain as left sided substernal dull chest pain that waxes and wanes, without radiation. He denies new vision changes, facial droop, focal weakness or numbness, palpitations, N/V/ D, abdominal pain, edema, or leg pain. He was unable to put his clothes on or even get up due to weakness. He received aspirin from medics prior to arrival to the ED. He reports the night prior he had an "electric jolt" through his body while walking and had a fall. In the ED, HR was 122, RR 24, BP dropped to 91/55. WBC was 10.5, Hb 9.3. BUN was 47, Cr 2.28. Troponin was 0.028. EKG showed afib at HR 128, with ST depression most prominent in leads V3-V5. CXR showed cardiomegaly with no acute changes. He was placed on dopamine gtt. On admission, he reports his chest pain and shortness of breath are improved, with no new changes. Pt was recently admitted to [facility] from 05/31 - 06/07/16 for TIA secondary to critical L carotid stenosis, s/p stent on 06/04/16, new onset severe systolic CHF with evidence of ischemic cardiomyopathy, atrial fibrillation with RVR, and acute on chronic renal failure. Baseline creatinine is 1.9 - 2. He currently lives by himself in a house in [place]. Discussed the situation with the patient; he feels that he may not live for more than a year more and does not wish to prolong his life much further. He is interested in a hospice visit at this time. PCP is Dr. Edwin Allen. His oncologist is Dr. Ernandez. Overnight events: Dopamine gtt titrated up to 0.5mcg/kg/minute to maintain MAP. Pt's afib accelerated into RVR. MD grossman, dopamine stopped, 2.5mg Metoprolol IVP administered with good effect to rate but dropped BP. 250ml NS bolus administered along with starting Levophed gtt and now is at 0.03mcg/kg/ minute to maintain MAP at goal of 60. Once patient's rate was controlled below 100, patient's nausea and increasing shortness of breath subsided. Late Entry: Patient transferred from PCC to CCU status for dopamine gtt used for BP vs renal perfusion dosing. RN-RN report received from Evelia Mulligan RN Today: Patient feels much better today. Denies chest pain, nausea, vomiting, diaphoresis, shortness of breath, abdominal pain, diarrhea. Exam Vital Signs Vital Sign - Last Date Time Temp Pulse Resp B/P Pulse Ox O2 Delivery O2 Flow Rate FiO2 06/30/16 03:30 79 15 88/50 99 Nasal Cannula 2.00 06/29/16 17:40 36.7 Intake and Output 06/29/16 06/29/16 06/30/16 Cumulative From/Thru 15:00 23:00 07:00 06/29/16 07:36 - 06/30/16 05:18 Intake Total 1000 ml 688 ml 351 ml 2039 ml Output Total 500 ml 340 ml 840 ml Balance 1000 ml 188 ml 11 ml 1199 ml Intake Oral 640 ml 0 ml 640 ml IV Total 1000 ml 48 ml 351 ml 1399 ml Output Urine Total 500 ml 340 ml 840 ml # Bowel Movements 0 0 Exam General: Alert, Oriented X3, Cooperative, No Acute Distress Head: Normocephalic, atraumatic. External ears normal. Eyes: PERRLA, EOMI. Anicteric sclerae. Mouth: Mouth Normal, Mucous Membranes Moist/[place] Neck: Neck supple with full range of motion. Chest & Lungs: Clear to auscultation bilaterally with no crackles, wheezes, or rhonchi. Cardiovascular: Irregularly irregular, tachycardic, Normal S1, Normal S2, No Murmurs/Rubs/Gallops Abdomen: Non-tender, Non-distended, No masses, Normoactive bowel tones, Soft Musculoskeletal: Normal Range of Motion Skin: Healing rash on left back from shingles episode. Multiple old bruises on arms and legs from falls. Extremities: No cyanosis/clubbing/edema bilaterally Neurological: Grossly Neurologically Intact, Slight difficulty with word finding (chronic). IVs and Medications Medications Reviewed: Medications were reviewed in detail Lab and Diagnostics Result Diagram: 06/30/16 0428 06/29/16 0748 X-Rays, CTs and MRIs X-RAY CHEST ONE VIEW, PORTABLE IMPRESSION: No definite pneumonia seen. Chronic interstitial prominence accentuated by reduced inspiratory volume. Dictated by: Juan Mae M.D. on 06/30/2016 at 11:59 US RENAL SONOGRAM IMPRESSION: Relatively small kidneys bilaterally, no urinary tract obstruction or calculus is found. Relatively small bilateral renal cysts are noted, 2 on the left and one on the right. No specific followup is necessary. Dictated by: Juan Mae M.D. on 06/30/2016 at 12:00 Cardiac Echo Impressions Echocardiogram Report Interpretation Summary The left ventricle is normal in size. The ejection fraction is estimated to be 30-35%. Compared to the prior exam, left ventricular function is slightly improved. Basal LV segments contractility have improved in this study from the previous one. The right ventricle is normal in size and function. There is mild mitral regurgitation. Compared to the prior echo study, there has been no change in the severity of mitral regurgitation. There is mild tricuspid regurgitation. Compared to the prior echo exam, there has been no change in TR severity. Right ventricular systolic pressure is estimated to be 40 mmHg plus the clinically estimated CVP which cannot be estimated on this exam. Reading Physician:OLIVER Assessment & Plan Patient is a 86 year old male with a history of lymphoma, [place], hypertension, systolic congestive heart failure, stroke, and multiple recurrent TIAs who presents with dull chest pain, shortness of breath, and generalized weakness. 1. Hypotension, not present on admission, controlled. - d/c dopamine ggt, continue NE ggt (below 0.05) to keep MAP > 60. - Likely 2nd to cardiogenic causes, will r/o infx. - blood cx pending, - procalcitonin pending. - CXR as above. - UA w/ rflx cx. 2. Possible NSTEMI, acute. Present on admission. - Pt presents with chest pain and shortness of breath that awoke him this morning. EKG shows ST depression in lateral leads, and troponin elevated at 0.028. However, his troponin appears to be chronically elevated in the context of chronic kidney disease. He wishes to speak with hospice at this time and does not wish for aggressive intervention. - Troponin x3 trending up. - d/c asa, plavix, warfarin. - Start cardiac Heparin ggt. - Monitor on telemetry - PRN Nitro and morphine 3. Atrial fibrillation with rapid ventricular rate, acute. Present on admission. - Pt presents with shortness of breath, HR 120s and in afib. Pt is on metoprolol tartrate 125 mg daily. He does not want aggressive measures and wishes for mostly symptomatic control. - decrease home metoprolol to 25 BID, patient is hypotensive and requiring NE. - d/c asa, plavix, warfarin. - Start cardiac Heparin ggt. 4. Systolic congestive heart failure, chronic. Present on admission. - Patient appears to be back to baseline in terms of respiratory function and breathing well. CXR does not show new infiltrates. - D/C lisinopril, furosemide, and KCl - ECHO as above 30-35% EF 5. Acute on Chronic Kidney Disease, Stage 4 - Pt baseline is 1.9 to 2. Cr 2.28 on admission. - Continue to monitor Cr. - Will hold off on fluids for now to avoid worsening CHF. 6. Type 2 Diabetes Mellitus - Glucose 144. Pt on Metformin 500 mg BID - Hold home metformin and glimepiride - Humalog low dose correctional scale. 7. Other Medical Conditions - Non-Hodgkin Lymphoma - Hypertension - History of multiple TIAs - Carotid atherosclerosis s/p stent - Meeting with hospice today (06/30) at 2 pm. Acetaminophen for mild pain when necessary. Bowel regimen Senna and MiraLAX scheduled and PRN. Zofran when necessary for nausea and vomiting. SubQ heparin held for now. SCDs in place. High-risk medications: IV Morphine IV Heparin ggt ICU: Vent settings: ABG: I/Os: Lines: Drips: NE Disposition: Likely here for > 2 midnights. Dependent upon SBP. Will be likely discharged to home. Hospice meeting 06/30. Pain Evaluation: Adequate Pain Control VTE Mechanical Devices: Intermittant Pneumatic CD Resuscitation Status: DNR/DNI:Do Not Resuscitate/Intubate Attending Statement The patient was seen and examined together with Dr. Worthington on 06/30/2016 and I agree with the history, exam and plan as outlined in the note above. . SKIP WORTHINGTON DO Jun 30, 2016 15:48 Michael Queen MD Jul 01, 2016 08:27
[2016-06-30 16:23] LABS: BASOPHILS % (AUTO) 0.7 % (0-3); EOSINOPHILS % (AUTO) 0.7 % (0-5); MONOCYTES % (AUTO) 12.1 % (4-12); Mean Corpuscular Hemoglobin 30.3 pg (27.0-35.0); Mean Corpuscular Volume 95.6 fL (81-100); Platelet Count 199 bil/L (150-400)
--- NOTE | 2016-06-30 16:54 | NUR ---
Hemodynamics/Pain.. Remains in afib but was able to take Metoprolol this am and joel well without drop in B/P/ This afternoon B/P drifted to the 80's-90's systolic, norepi increased and B/P has normalized at .04 mcg. Pt admitted to 2/ chest discomfort midsternum, non radiating with slight SOB. Dr Queen and Sima updated. NTG paste ordered and pt has been pain free. Pt requested to have Hospice consult. Was seen by line out worker and this is being arranged for once pt is ready for D/C. Family has been at the beside and are aware of the plan of care.
[2016-06-30] MEDS: Insulin LISPRO 300 Unit/3 mL Inj SUBQ SCH ×2 (18:03→21:18)
[2016-07-01] VITALS (7 sets, daily range): BP systolic 92–118; BP diastolic 44–55; PULSE 91–105; RESP 16–20; O2SAT 98–100
[2016-07-01 05:27] LABS: Mean Corpuscular Volume 96.2 fL (81-100); Platelet Count 199 bil/L (150-400)
[2016-07-01 05:45] LABS: BASOPHILS % (AUTO) 2 % (0-3); EOSINOPHILS % (AUTO) 3 % (0-5); MONOCYTES % (AUTO) 8 % (4-12); NEUTROPHILS % (AUTO) 69 % (40-74)
[2016-07-01 05:48] LABS: INR 1.19 ratio
--- NOTE | 2016-07-01 05:59 | NUR ---
Hypotension Levophed gtt titrated throughout the night to maintain MAP at goal of 60. Levophed ranging from 0.03-0.05mcg/kg/minute. 2L NC unable to wean off. Pt has poor appetite. Patient states he is affraid he will feel nauseous like last night when he went into Afib RVR. Pt states MD was going to start him on a appetite stimulant pill.
[2016-07-01 06:09] LABS: Magnesium 2.2 mg/dL (1.6-2.6)
[2016-07-01 06:12] LABS: Phosphorus 3.3 mg/dL (2.5-4.9)
[2016-07-01] MEDS: Insulin LISPRO 300 Unit/3 mL Inj SUBQ SCH ×4 (08:00→20:24)
--- NOTE | 2016-07-01 11:18 | NUR ---
Social Work: Readiness for Discharge D: Pt discussed in am rounds. Pt is transitioning to comfort care and has signed consents with hospice. Pt will be ready for discharge home tomorrow. NUCLEAR POWER REACTOR OPERATOR spoke with Eugenie at [facility] who states that Hospice can open on Saturday at 10:00am. DME (Wheelchair) is scheduled for Saturday. Pt is currently on 1L 02 and will require this at discharge. [employer] is the supplier used by Hospice. Respiratory therapy will evaluate pt today for 02 needs. MD is aware pt will need to leave by 0900 tomorrow and to have orders ready. NUCLEAR POWER REACTOR OPERATOR met with pt and family at bedside to discuss discharge plan. Pt is eager to get home. Pt continues to decline a hospital bed arranged by Hospice. Pt lives at home, alone. Pt does not have concerns about discharge home and states he will primarily be using his wheelchair for ambulation. NUCLEAR POWER REACTOR OPERATOR encouraged family to consider providing additional support for the pt at home as his needs will likely be increase and he will need supervision as medications are added to control pain. Family agrees and states that they are working on a plan to increase the amount of time they spend with the patient on a daily basis. NUCLEAR POWER REACTOR OPERATOR provided in-home caregiving resources, Senior Resource Guide and SafetyLine information to family. NUCLEAR POWER REACTOR OPERATOR reviewed potential risks if pt does not have extra support at home. They state they understand. Pt's son will be at bedside tomorrow morning to transport the pt home. NUCLEAR POWER REACTOR OPERATOR updated bedside RN who is working to titrate pt's current medications in anticipation for d/c tomorrow. PT evaluation has also been requested to provide education on transfers in and out of w/c. A: Pt who is transitioning to hospice. P: Anticipate pt to discharge on Saturday morning by 0900 with hospice to open at [phone]. NUCLEAR POWER REACTOR OPERATOR to continue to follow. KEON Raphael
[2016-07-01] MEDS ORDERED: Polyethylene Glycol (PEG) 17 Gm Powder PO SCH (14:00)
[2016-07-01] MEDS ORDERED: LORazepam 0.5 mg Tablet PO PRN (14:05)
--- NOTE | 2016-07-01 14:41 | NUR ---
Evaluation completed. Please go to "Notes" then click on "Assessments and Notes" (bottom left corner of screen). Then select appropriate discipline tab on top of screen.
--- NOTE | 2016-07-01 15:57 | NUR ---
P: Cardiac, Resp, Nutrition, Social I,E: Pt cont in a-fib 90's to 100'sl tele is to be DC'd this afternoon and he will be PCC status. BP has been 90-110's today after norepi gtt was titrated down and off. Heparin gtt DC'd today per MD. Pt requires 1l O2 via NC to maintain sats. He de-sats to high 80's on room air, but is high 90's on 1l. Pt denies cough. Pt states he has very little appetite, I have encouraged small frequent meals and snacks, as well as glucerna drinks as he tolerates. Pt has been seen by case management today and plan will be for discharge home tomorrow with hospice. Family are going to be able to help at home per pt.
--- NOTE | 2016-07-01 17:05 | NUR ---
[facility] SIgned
--- NOTE | 2016-07-01 17:10 | PCM.PNMED ---
Subjective Date of Service Jul 01, 2016 Subjective Overnight: Patient was weaned off Levophed, maintained decent BP. Today: He reports poor appetite and was interested in appetite stimulants. He also reports constipation. He denies chest pain, shortness of breath, N/V/D, fevers, chills. Exam Vital Signs Vital Sign - Last Date Time Temp Pulse Resp B/P Pulse Ox O2 Delivery O2 Flow Rate FiO2 07/01/16 15:51 Supplement Oxygen 07/01/16 15:51 36.6 99 20 92/50 98 1.00 Intake and Output 06/30/16 06/30/16 07/01/16 Cumulative From/Thru 15:00 23:00 07:00 06/29/16 07:36 - 07/01/16 05:24 Intake Total 1229 ml 514 ml 3782 ml Output Total 500 ml 500 ml 1840 ml Balance 729 ml 14 ml 1942 ml Intake Oral 810 ml 1450 ml IV Total 419 ml 514 ml 2332 ml Output Urine Total 500 ml 500 ml 1840 ml # Bowel Movements 0 0 0 Exam General: Alert, Oriented X3, Cooperative, No Acute Distress Head: Normocephalic, atraumatic. External ears normal. Eyes: PERRLA, EOMI. Anicteric sclerae. Mouth: Mouth Normal, Mucous Membranes Moist/[place] Neck: Neck supple with full range of motion. Chest & Lungs: Clear to auscultation bilaterally with no crackles, wheezes, or rhonchi. Cardiovascular: Irregularly irregular, Normal S1, Normal S2, No Murmurs/Rubs/ Gallops Abdomen: Non-tender, Non-distended, No masses, Normoactive bowel tones, Soft Musculoskeletal: Normal Range of Motion Skin: Healing rash on left back from shingles episode. Multiple old bruises on arms and legs from falls. Extremities: Minimal pedal edema. Neurological: Grossly Neurologically Intact, Slight difficulty with word finding (chronic). Lab and Diagnostics Result Diagram: 07/01/1651707/01/16517 X-Rays, CTs and MRIs X-RAY CHEST ONE VIEW, PORTABLE IMPRESSION: No definite pneumonia seen. Chronic interstitial prominence accentuated by reduced inspiratory volume. Dictated by: Juan Mae M.D. on 06/30/2016 at 11:59 US RENAL SONOGRAM IMPRESSION: Relatively small kidneys bilaterally, no urinary tract obstruction or calculus is found. Relatively small bilateral renal cysts are noted, 2 on the left and one on the right. No specific followup is necessary. Dictated by: Juan Mae M.D. on 06/30/2016 at 12:00 Cardiac Echo Impressions Echocardiogram Report Interpretation Summary The left ventricle is normal in size. The ejection fraction is estimated to be 30-35%. Compared to the prior exam, left ventricular function is slightly improved. Basal LV segments contractility have improved in this study from the previous one. The right ventricle is normal in size and function. There is mild mitral regurgitation. Compared to the prior echo study, there has been no change in the severity of mitral regurgitation. There is mild tricuspid regurgitation. Compared to the prior echo exam, there has been no change in TR severity. Right ventricular systolic pressure is estimated to be 40 mmHg plus the clinically estimated CVP which cannot be estimated on this exam. Reading Physician:AM Assessment & Plan Patient is a 86 year old male with a history of lymphoma, [place], hypertension, systolic congestive heart failure, stroke, and multiple recurrent TIAs who presents with dull chest pain, shortness of breath, and generalized weakness. 1. Hypotension, not present on admission, controlled. - Likely 2nd to cardiogenic causes; sepsis unlikely. - Discontinued norepi and dopamine - blood cx pending, - procalcitonin 0.12 - CXR as above. - UA negative. 2. Possible NSTEMI, acute. Present on admission. - Pt presents with chest pain and shortness of breath that awoke him this morning. EKG shows ST depression in lateral leads, and troponin elevated at 0.028. However, his troponin appears to be chronically elevated in the context of chronic kidney disease. He will be discharging home on hospice tomorrow morning and does not wish for aggressive intervention. - Discontinued asa, plavix, warfarin. He is a fall risk, which outweigh the benefits of stroke prevention. - Stopped heparin gtt - Discontinued telemetry - PRN Nitro and morphine 3. Atrial fibrillation with rapid ventricular rate, acute. Present on admission. - Pt presents with shortness of breath, HR 120s and in afib. Pt is on metoprolol tartrate 125 mg daily. He does not want aggressive measures and wishes for mostly symptomatic control. - Metoprolol 25 mg BID - Discontinued asa, plavix, warfarin 4. Systolic congestive heart failure, chronic. Present on admission. - Patient appears to be back to baseline in terms of respiratory function and breathing well. CXR does not show new infiltrates. - Continue Lasix - Metoprolol tartrate 25 mg BID - ECHO as above 30-35% EF 5. Acute on Chronic Kidney Disease, Stage 4. Improving. - Pt baseline is 1.9 to 2. Cr 2.28 on admission. - Continue to monitor Cr. - Will hold off on fluids for now to avoid worsening CHF. 6. Type 2 Diabetes Mellitus - Glucose 144. Pt on Metformin 500 mg BID. Will discharge without metformin or glimepiride as BG has been less than 200 with minimal insulin coverage. - Hold home metformin and glimepiride - Humalog low dose correctional scale. 7. Chronic pain - Will discharge with oxycodone 5 mg q6h PO PRN for comfort 8. Anxiety - Will discharge with Ativan 0.5 mg BID PRN - Mirtazapine 7.5 mg qhs 9. Chronic anorexia - Discussed case with Dr. Valerio of hospice care, he would benefit from Mirtazapine for appetite stimulation and anxiety - Mirtazapine 7.5 mg qhs 10. Chronic constipation - Senna 17.2 mg BID PRN - will discharge on this medication. Avoid Miralax given his CHF as it requires larger amounts of fluids. 11. Other Medical Conditions - Non-Hodgkin Lymphoma - Hypertension - History of multiple TIAs - Carotid atherosclerosis s/p stent - Meeting with hospice today (06/30) at 2 pm. Acetaminophen for mild pain when necessary. Bowel regimen Senna Zofran when necessary for nausea and vomiting. SubQ heparin held for now. SCDs in place. High-risk medications: IV Morphine IV Heparin ggt ICU: Vent settings: ABG: I/Os: Lines: Drips: NE Disposition: Will be discharging at 9 AM tomorrow to hospice. VTE Mechanical Devices: Intermittant Pneumatic CD Resuscitation Status: DNR/DNI:Do Not Resuscitate/Intubate Attending Statement The patient was seen and examined together with Dr. Adamson on 07/01/2016 and I agree with the history, exam and plan as outlined in the note above. . Eben Adamson Jul 01, 2016 17:10 Michael Queen MD Jul 14, 2016 16:47
[2016-07-01] MEDS ORDERED: OXYC5TAB72 PO (17:15)
[2016-07-01] MEDS ORDERED: NITR0.4T SL (17:15)
[2016-07-01] MEDS ORDERED: MIRT15TA6 PO (17:15)
[2016-07-01] MEDS ORDERED: SENN-133 PO (17:15)
[2016-07-01] MEDS ORDERED: METO50TA3 PO (17:15)
--- NOTE | 2016-07-01 17:19 | PCM.DIMED ---
Eben Adamson 07/01/16 1719: Discharge Instructions Date of Service Jul 01, 2016 Dates of Hospitalization Jun 29, 2016 at 11:27 Discharge Diagnosis Discharge Diagnosis 1. Hypotension 2. Possible NSTEMI 3. Atrial fibrillation with rapid ventricular rate 4. Systolic congestive heart failure 5. Acute on Chronic Kidney Disease, Stage 4 6. Type 2 Diabetes Mellitus 7. Chronic pain 8. Anxiety 9. Chronic poor appetite 10. Chronic constipation 11. Other Medical Conditions - Non-Hodgkin Lymphoma - Hypertension - History of multiple TIAs - Carotid atherosclerosis s/p stent - Meeting with hospice today (06/30) at 2 pm. Diet No restrictions Activity Limited until seen by PCP Patient Instructions - Follow up with hospice - Take metoprolol 25 mg (1/2 tablet) twice daily - Take Mirtazapine 1/2 tablet in the evening. This is for appetite stimulation and works well for anxiety. - Take nitroglycerine dissolvable tablets as needed for chest pain - Take oxycodone sparingly for pain - Take Senna twice daily as needed for constipation Follow-up Provider: Roberto Carlos Murdock MD Follow-up with PCP in: 1 week Paresh Moctezuma MD 07/02/16 2006: Discharge Instructions Attending's Statement The patient was seen and examined together with Dr. Adamson on 07/02/2016 and I agree with the plan as outlined in the note above. Michael Queen MD 07/14/16 1648: Discharge Instructions Attending's Statement The patient was seen and examined together with Dr. Adamson on 07/01/2016 and I agree with the history, exam and plan as outlined in the note above. . Eben Adamson Jul 01, 2016 17:19 Paresh Moctezuma MD Jul 02, 2016 20:06 Michael Queen MD Jul 14, 2016 16:48
--- NOTE | 2016-07-01 18:51 | NUR ---
Pt request to leave valencia in overnight Pt is to be discharged home tomorrow with hospice. He requested his valencia be left in tonight.
[2016-07-02 02:50] VITALS: BP 103/55; PULSE 74; RESP 14; O2SAT 96
[2016-07-02 04:35] LABS: INR 1.12 ratio
--- NOTE | 2016-07-02 06:25 | NUR ---
Patient care Patient denies discomfort overnight. Vital signs taken when patient wakes. VSS. Patient turning independently in bed. Castaneda remains in place per patient request. Continue to monitor.
[2016-07-02 07:49] VITALS: BP 110/55; PULSE 105; RESP 16; O2SAT 100
[2016-07-02] MEDS: Insulin LISPRO 300 Unit/3 mL Inj SUBQ SCH (08:00)
--- NOTE | 2016-07-02 09:05 | NUR ---
Discharge He discharged at 0905 via wheelchair with his son to go home on Hospice. Discharge paperwork (instructions, hard copy prescriptions, shown and discussed with both the patient and his son. Questions were answered. His three peripheral IVs were discontinued intact. Castaneda catheter was also discontinued intact. No complaints of pain. Thanked staff for his care. Took belongings with him.
--- NOTE | 2016-07-02 11:01 | PCM.DC.MED ---
Discharge Summary Date of Service Jul 02, 2016 Dates of Hospitalization Date of Hospital Admission Jun 29, 2016 at 11:27 Date of Discharge: Jul 02, 2016 Providers: Admitting Physician: Michael Queen MD Primary Care Physician: Roberto Carlos Murdock MD Attending Physician: Michael Queen MD Diagnosis at Time of Discharge Diagnosis at Time of Discharge 1. Hypotension 2. Possible NSTEMI 3. Atrial fibrillation with rapid ventricular rate 4. Systolic congestive heart failure 5. Acute on Chronic Kidney Disease, Stage 4 6. Type 2 Diabetes Mellitus 7. Chronic pain 8. Anxiety 9. Chronic poor appetite 10. Chronic constipation 11. Other Medical Conditions - Non-Hodgkin Lymphoma - Hypertension - History of multiple TIAs - Carotid atherosclerosis s/p stent - Meeting with hospice today (06/30) at 2 pm. Procedures XRay, CTs & MRIs X-RAY CHEST ONE VIEW, PORTABLE IMPRESSION: No definite pneumonia seen. Chronic interstitial prominence accentuated by reduced inspiratory volume. Dictated by: Juan Mae M.D. on 06/30/2016 at 11:59 US RENAL SONOGRAM IMPRESSION: Relatively small kidneys bilaterally, no urinary tract obstruction or calculus is found. Relatively small bilateral renal cysts are noted, 2 on the left and one on the right. No specific followup is necessary. Dictated by: Juan Mae M.D. on 06/30/2016 at 12:00 Cardiac Echo Impression Echocardiogram Report Interpretation Summary The left ventricle is normal in size. The ejection fraction is estimated to be 30-35%. Compared to the prior exam, left ventricular function is slightly improved. Basal LV segments contractility have improved in this study from the previous one. The right ventricle is normal in size and function. There is mild mitral regurgitation. Compared to the prior echo study, there has been no change in the severity of mitral regurgitation. There is mild tricuspid regurgitation. Compared to the prior echo exam, there has been no change in TR severity. Right ventricular systolic pressure is estimated to be 40 mmHg plus the clinically estimated CVP which cannot be estimated on this exam. Reading Physician:OLIVER Brief History PER HPI on admission Patient is a 86 year old male with a history of lymphoma, [place], hypertension, systolic congestive heart failure, stroke, and multiple recurrent TIAs who presents to the ED via EMS due to chest pain which began 3 hours prior to admission. He was woken up by chest pain this morning and experienced shortness of breath and weakness, to the point that he was only able to put his socks on and was unable to dress further. He describes his chest pain as left sided substernal dull chest pain that waxes and wanes, without radiation. He denies new vision changes, facial droop, focal weakness or numbness, palpitations, N/V/ D, abdominal pain, edema, or leg pain. He was unable to put his clothes on or even get up due to weakness. He received aspirin from medics prior to arrival to the ED. He reports the night prior he had an "electric jolt" through his body while walking and had a fall. In the ED, HR was 122, RR 24, BP dropped to 91/55. WBC was 10.5, Hb 9.3. BUN was 47, Cr 2.28. Troponin was 0.028. EKG showed afib at HR 128, with ST depression most prominent in leads V3-V5. CXR showed cardiomegaly with no acute changes. He was placed on dopamine gtt. On admission, he reports his chest pain and shortness of breath are improved, with no new changes. Pt was recently admitted to [facility] from 05/31 - 06/07/16 for TIA secondary to critical L carotid stenosis, s/p stent on 06/04/16, new onset severe systolic CHF with evidence of ischemic cardiomyopathy, atrial fibrillation with RVR, and acute on chronic renal failure. Baseline creatinine is 1.9 - 2. He currently lives by himself in a house in [place]. Discussed the situation with the patient; he feels that he may not live for more than a year more and does not wish to prolong his life much further. He is interested in a hospice visit at this time. PCP is Dr. Edwin Allen. His oncologist is Dr. Ernandez. Hospital Course Patient is a 86 year old male with a history of lymphoma, [place], hypertension, systolic congestive heart failure, stroke, and multiple recurrent TIAs who presents with dull chest pain, shortness of breath, and generalized weakness. 1. Hypotension, not present on admission, controlled. - Likely 2nd to cardiogenic causes; sepsis unlikely. - Discontinued norepi and dopamine ,patient and family opted for hospice care - Blood cultures negative. - procalcitonin 0.12 - CXR as above. - UA negative. 2. Possible NSTEMI, acute. Present on admission. - Pt presents with chest pain and shortness of breath that awoke him this morning. EKG shows ST depression in lateral leads, and troponin elevated at 0.028. However, his troponin appears to be chronically elevated in the context of chronic kidney disease. He will be discharging home on hospice tomorrow morning and does not wish for aggressive intervention. - Discontinued asa, plavix, warfarin. He is a fall risk, which outweigh the benefits of stroke prevention. - Stopped heparin gtt - Discontinued telemetry - PRN Nitro and morphine patient and family opted for hospice care 3. Atrial fibrillation with rapid ventricular rate, acute. Present on admission. - Pt presents with shortness of breath, HR 120s and in afib. Pt is on metoprolol tartrate 125 mg daily. He does not want aggressive measures and wishes for mostly symptomatic control. - Metoprolol 25 mg BID for symptomatic control as pt gets short of breath with tachycardia - Discontinued asa, plavix, warfarin patient and family opted for hospice care 4. Systolic congestive heart failure, chronic. Present on admission. - Patient appears to be back to baseline in terms of respiratory function and breathing well. CXR does not show new infiltrates. - treated with Lasix - will continue Metoprolol tartrate 25 mg BID - ECHO as above 30-35% EF patient and family opted for hospice care 5. Acute on Chronic Kidney Disease, Stage 4. Improving. - Pt baseline is 1.9 to 2. Cr 2.28 on admission. . patient and family opted for hospice care c 6. Type 2 Diabetes Mellitus - Glucose 144. Pt on Metformin 500 mg BID. Will discharge without metformin or glimepiride as BG has been less than 200 with minimal insulin coverage. - Hold home metformin and glimepiride patient and family opted for hospice care 7. Chronic pain - Will discharge with oxycodone 5 mg q6h PO PRN for comfort 8. Anxiety - Will discharge with Ativan 0.5 mg BID PRN - Mirtazapine 7.5 mg qhs 9. Chronic anorexia - Discussed case with Dr. Valerio of hospice care, he would benefit from Mirtazapine for appetite stimulation and anxiety - Mirtazapine 7.5 mg qhs 10. Chronic constipation - Senna 17.2 mg BID PRN - will discharge on this medication. Avoid Miralax given his CHF as it requires larger amounts of fluids. 11. Other Medical Conditions - Non-Hodgkin Lymphoma - Hypertension - History of multiple TIAs - Carotid atherosclerosis s/p stent patient and family opted for hospice care .discharged home on hospice Exam Vital Signs (Last) Date Time Temp Pulse Resp B/P Pulse Ox O2 Delivery O2 Flow Rate FiO2 07/02/16 07:49 Supplement Oxygen 07/02/16 07:49 36.8 105 16 110/55 100 1.00 Exam General: Alert, Oriented X3, Cooperative, No Acute Distress Head: Normocephalic, atraumatic. External ears normal. Eyes: PERRLA, EOMI. Anicteric sclerae. Mouth: Mouth Normal, Mucous Membranes Moist/[place] Neck: Neck supple with full range of motion. Chest & Lungs: Clear to auscultation bilaterally with no crackles, wheezes, or rhonchi. Cardiovascular: Irregularly irregular, Normal S1, Normal S2, No Murmurs/Rubs/ Gallops Abdomen: Non-tender, Non-distended, No masses, Normoactive bowel tones, Soft Musculoskeletal: Normal Range of Motion Skin: Healing rash on left back from shingles episode. Multiple old bruises on arms and legs from falls. Extremities: Minimal pedal edema. Neurological: Grossly Neurologically Intact, Slight difficulty with word finding (chronic). Test 06/29/16 22:24 06/30/16 00:24 06/30/16 04:28 07/01/16 05:18 Urine Color Yellow (YELLOW) Urine Appearance Clear (CLEAR,HAZY) Urine pH 5.5 (5.0-8.0) Urine Specific [place] 1.020 (1.003-1.035) Urine Protein Negativemg/dL (NEG,TRACE) Urine Glucose (UA) Negativemg/dL (NEGATIVE) Urine Ketones Negativemg/dL (NEGATIVE) Urine Occult Blood Trace (NEGATIVE) Urine Nitrite Negative (NEGATIVE) Urine Bilirubin Negative (NEGATIVE) Urine Urobilinogen Normalmg/dL (NORMAL) Urine Leukocyte Esterase Negative (NEGATIVE) Urine RBC 0-2/hpf (0-2) Urine WBC 0-5/hpf (0-5) Urine Epithelial Cells Occasional/hpf (NONE-MOD) Urine Crystals Amorphous urates (NONE Urine Bacteria Few/hpf (NONE-FEW) Urine Hyaline Casts Rare/lpf (NONE) Urine Granular Casts None seen (NONE SEEN) Urine Waxy Casts None seen (NONE SEEN) Urine Red Blood Cell Casts None seen (NONE SEEN) Urine White Blood Cell Casts None seen (NONE SEEN) Urine Mucus Present (None Seen) Urine Trichomonas None seen (NONE SEEN) Urine Yeast None (NONE SEEN) Urinalysis Comment None Urine Culture Reflexed Not indicated Troponin T 0.346ug/L (0.0-0.011) Procalcitonin 0.12ng/mL (0.00-0.08) White Blood Count 8.2th/mm3 (3.8-10.1) Red Blood Count 2.60mil/mm3 (4.40-5.80) Hemoglobin 7.8g/dL (13.8-17.2) Hematocrit 25.0% (41.0-50.0) Mean Corpuscular Volume 96.2fL (81-100) Mean Corpuscular Hemoglobin 30.0pg (27.0-35.0) Mean Corpuscular Hemoglobin Concent 31.2% (32.0-37.0) Red Cell Distribution Width 15.2% (12.3-15.4) Platelet Count 199bil/L (150-400) Neutrophils (%) (Auto) 69% (40-74) Lymphocytes (%) (Auto) 16% (14-46) Monocytes (%) (Auto) 8% (4-12) Eosinophils (%) (Auto) 3% (0-5) Basophils (%) (Auto) 2% (0-3) Band Neutrophils % 2% (1-5) Activated Partial Thromboplast Time 62.4sec (22.8-33.0) Sodium Level 141mEq/L (134-144) Potassium Level 4.6mEq/L (3.5-5.2) Chloride Level 108mEq/L (97-108) Carbon Dioxide Level 19mmol/L (18-29) Blood Urea Nitrogen 30mg/dL (8-27) Creatinine 1.54mg/dL (0.76-1.27) Estimat Glomerular Filtration Rate 46mL/min (>59) Glucose Level 148mg/dL (60-99) Calcium Level 8.3mg/dL (8.5-10.1) Phosphorus Level 3.3mg/dL (2.5-4.9) Magnesium Level 2.2mg/dL (1.6-2.6) Total Bilirubin 0.7mg/dL (0.0-1.2) Aspartate Amino Transf (AST/SGOT) 31U/L (0-50) Alanine Aminotransferase (ALT/SGPT) 8U/L (0-44) Alkaline Phosphatase 77U/L (25-160) Total Protein 4.6g/dL (6.4-8.4) Albumin 3.0g/dL (3.4-5.0) Test 07/02/16 03:35 Prothrombin Time 12.0sec (8.1-12.5) Prothromb Time International Ratio 1.12ratio Discharge Medications Discharge Medications Furosemide (Furosemide) 40 Mg Tablet 40 MG PO DAILY (Reported) Metoprolol Tartrate (Metoprolol Tartrate) 50 Mg Tablet 25 MG PO BID Prescribed by: CRISTY ADAMSON DO Mirtazapine (Mirtazapine) 15 Mg Tablet 7.5 MG PO HS Prescribed by: CRISTY ADAMSON DO Potassium Chloride ER (Klor-Con M20) 20 Meq Tablet 20 MEQ PO DAILY (Reported) As needed Docusate Sodium (Colace) 100 Mg Capsule 100 MG PO BID PRN PRN For Constipation ( Reported) Nitroglycerin SL (Nitrostat) 0.4 Mg Tab.subl 0.4 MG SL Q5MIN PRN PRN For Chest Pain Prescribed by: CRISTY ADAMSON DO Ondansetron (Ondansetron) 4 Mg Tablet 4 MG PO Q6H PRN PRN For Nausea/Vomiting ( Reported) Promethazine (Promethazine) 12.5 Mg Tablet 12.5 MG PO Q4H PRN PRN For Nausea/ Vomiting (Reported) Sennosides (Senna) 8.6 Mg Tablet 17.2 MG PO BID PRN PRN For Constipation Prescribed by: CRISTY ADAMSON DO oxyCODONE (oxyCODONE) 5 Mg Tablet 5 MG PO Q6 PRN PRN For Moderate Pain Prescribed by: CRISTY ADAMSON DO Followup Plan Disposition: home on hospice Follow-up plan follow up with hospice Discharge Diet: No restrictions Discharge Activity: Limited until seen by PCP Patient Instructions - Follow up with hospice - Take metoprolol 25 mg (1/2 tablet) twice daily - Take Mirtazapine 1/2 tablet in the evening. This is for appetite stimulation and works well for anxiety. - Take nitroglycerine dissolvable tablets as needed for chest pain - Take oxycodone sparingly for pain - Take Senna twice daily as needed for constipation Follow-up Provider: Roberto Carlos Murdock MD Follow-up with PCP in: 1 week Time spent 35 minutes reviewing chart and coordinating discharge Attending Statement The patient was seen and examined together with Dr. Adamson on 07/02/2016 and I agree with the discharge summary as outlined in the note above. copies to: Roberto Carlos Murdock MD, Andrew R Jul 02, 2016 11:01 Paresh Moctezuma MD Jul 02, 2016 20:11
--- NOTE | 2016-07-02 16:31 | NUR ---
Social Work Note: Discharge Data& Assessment: Per pt is medically ready for discharge home via POV with hospice. SW met with pt and pt son at bedside to confirm discharge plan and assess for any unmet needs. Pt son confirmed he was transporting pt home. Pt denied any other needs. Hospice services opening today. Pt discharged accordingly to be home by the time Hospice Services opened at 10:00am. All updated and agreeable to plan. No other discharge needs identified. Plan: Per pt is medically ready for discharge home via POV with hospice services to open at 10:00am this morning. Pt denied any other needs. All updated and agreeable to plan. No other discharge needs identified. KEON Morel
== END 2016-07-02 08:30 | disposition home or self-care (01) | DRG 281 ==
LOC: SED 07:18 → EDUNIT# 07:18 → EDBD 07:18 → EDSEX 07:18 → SED 08:23 → PCC 11:27 → CCU 20:29 → PCC 07-01 16:39
PROVIDERS: ADMIT Internal Medicine; ATTEND Internal Medicine
DX: I21.4 Non-ST elevation (NSTEMI) myocardial infarction (principal); N18.4 Chronic kidney disease, stage 4 (severe); C85.90 Non-Hodgkin lymphoma, unspecified, unspecified site; I50.22 Chronic systolic (congestive) heart failure; Z79.01 Long term (current) use of anticoagulants; Z79.84 Long term (current) use of oral hypoglycemic drugs; Z87.891 Personal history of nicotine dependence; Z66 Do not resuscitate; I25.5 Ischemic cardiomyopathy; Z86.73 Personal history of transient ischemic attack (TIA), and cerebral infarction without residual deficits; I48.91 Unspecified atrial fibrillation; E11.9 Type 2 diabetes mellitus without complications; R79.1 Abnormal coagulation profile; I95.9 Hypotension, unspecified; G89.29 Other chronic pain; F41.9 Anxiety disorder, unspecified; R63.0 Anorexia; K59.00 Constipation, unspecified